=== PATIENT | female | born 1990 | race Caucasian/White ===

== ENCOUNTER 2018-06-22 00:43 | Emergency (ER) | payer SELFPAY ==
[2018-06-22] MEDS ORDERED: POVIDONE IODINE 10 % 15 ML UD TOP ONE (00:54)
[2018-06-22] MEDS ORDERED: LIDOCAINE 1% 10 ML VIAL INJ ONE (01:18)
[2018-06-22] MEDS ORDERED: CHLORHEXIDINE GLUCONATE 4 % 15 ML UD TOP ONE (01:28)
[2018-06-22] MEDS ORDERED: TETANUS,DIPHTHERIA,PERTUSSIS 1 EA SYG IM ONE (01:56)
--- NOTE | 2018-06-22 01:56 | ED.PDOC ---
History of Present Illness - General Chief Complaint: Laceration Stated Complaint: self inflicted laceration Time Seen by Provider: 06/22/18 01:53 Source: patient Exam Limitations: no limitations - History of Present Illness Initial Comments: SELF INFLICTED LAC TO THE LEFT FOREARM, VOLAR SURFACE. SHE HAS BEEN DEPRESSED AND FELT THE NEED TO HURT HERSELF. DENIES BEING SUICIDAL. Timing/Duration: 1 hour Severity: moderate Improving Factors: nothing Worsening Factors: nothing Associated Symptoms: denies symptoms Allergies/Adverse Reactions: Allergies NO KNOWN ALLERGY Allergy (Unverified 02/14/13 14:49) Home Medications: Ambulatory Orders Sulfamethoxazole-Trimethoprim [Bactrim Ds 800-160 mg] 1 tablet PO BID #20 tablet 06/22/18 Review of Systems - Review of Systems Constitutional: States: no symptoms reported EENTM: States: no symptoms reported Respiratory: States: no symptoms reported Cardiology: States: no symptoms reported Gastrointestinal/Abdominal: States: no symptoms reported Genitourinary: States: no symptoms reported Musculoskeletal: States: no symptoms reported Skin: States: other - LACERATION Past Medical History (General) - Patient Medical History Hx Asthma: No Hx Diabetes: No Surgical History: other Other Surgeries:: DEPRESSION - Vaccination History Hx Tetanus, Diphtheria Vaccination: No Hx Influenza Vaccination: No - Social History Hx Tobacco Use: Yes Hx Alcohol Use: Yes - Female History Patient is a Female of Child Bearing Age (10 -59 yrs old): Yes Family Medical History - Family History Mother Family History: Unknown Physical Exam - Physical Exam General Appearance: Alert Neck: non-tender, full range of motion Respiratory: chest non-tender, lungs clear, normal breath sounds Cardiovascular/Chest: normal peripheral pulses, regular rate, rhythm, no edema Peripheral Pulses: radial,right: 2+, radial,left: 2+ Gastrointestinal/Abdominal: normal bowel sounds, non tender, soft Skin Exam: other - 10 CM LACERATION TO THE LEFT FOREARM. ADISPOSE TISSUE EXPOSED Procedures - Laceration/Wound Repair Left Volar Arm Wound Length (cm): 10 Wound's Depth, Shape: into muscle, linear Wound Explored: no foreign body removed Irrigated w/ Saline (cc's): 250 Betadine Prep?: Yes Anesthesia: 1% Lidocaine Volume Anesthetic (cc's): 10 Wound Debrided: minimal Wound Repaired With: sutures Suture Size/Type: 4:0, nylon Number of Sutures: 10 Layer Closure?: Yes Deep Layer Suture Size/Type: 4:0, vicryl Number Deep Layer Sutures: 6 Sterile Dressing Applied?: Yes Splint Applied?: No Sling Applied?: No Departure - Departure Clinical Impression: Laceration, Depressed affect Time of Disposition: 02:01 Disposition: Discharge to Home or Self Care Condition: Good Departure Forms: ED Discharge - Pt. Copy, Patient Portal Self Enrollment Instructions: DI for Laceration Repair, How to Care for a Laceration After Repair Referrals: Shy Mayorga MD [Primary Care Provider] - 1-2 Weeks Prescriptions: Sulfamethoxazole-Trimethoprim [Bactrim Ds 800-160 mg] 1 tablet PO BID #20 tablet Home Medications: Ambulatory Orders Sulfamethoxazole-Trimethoprim [Bactrim Ds 800-160 mg] 1 tablet PO BID #20 tablet 06/22/18
[2018-06-22] MEDS ORDERED: ACETAMINOPHEN 500 MG TAB PO ONE (01:59)
[2018-06-22] MEDS ORDERED: NEOMYCIN-BACITRACIN-POLYMYXIN 0.9 GM UD TOP ONE (02:22)
[2018-06-22 03:40] VITALS: BP 138/98; TEMP 97.2; O2SAT 95
== END 2018-06-22 03:25 | disposition home or self-care (01) ==
LOC: ER 00:43
DX: S51.812A Laceration without foreign body of left forearm, initial encounter (principal); F32.9 Major depressive disorder, single episode, unspecified; Z23 Encounter for immunization; Z87.891 Personal history of nicotine dependence; X78.9XXA Intentional self-harm by unspecified sharp object, initial encounter